=== PATIENT | female | born 1980 | race Caucasian/White ===

== ENCOUNTER 2020-07-12 11:14 | Outpatient (CLI) | payer OTHER, MEDICAID ==
--- NOTE | 2020-07-12 12:05 | XRAY Report ---
PROCEDURE: Knee 3 View RT INDICATIONS: RIGHT KNEE PAIN TECHNIQUE: 3 views of the right knee(s) were acquired. COMPARISON: None. FINDINGS: Bones: No fractures or dislocations. No suspicious bony lesions. Soft tissues: No joint effusion. No suspicious soft tissue calcifications. IMPRESSION: No trauma found, no effusion or loose body. Source of pain is seen. Reviewed by: Fareed Weinberg MD on 07/12/2020 12:04 PM [facility] Approved by: Fareed Weinberg MD on 07/12/2020 12:04 PM PST Station ID: [id number]
== END 2020-07-12 11:15 | disposition home or self-care (01) ==
LOC: DI.S 11:14
PROVIDERS: ATTEND Family Medicine
DX: M25.561 Pain in right knee (principal)

== ENCOUNTER 2020-08-31 12:50 | Outpatient (CLI) | payer OTHER, MEDICAID ==
--- NOTE | 2020-08-31 14:31 | Ultrasound Report ---
PROCEDURE: Ext Limited Non Vascular INDICATIONS: RT KNEE CYSTIC LATERAL MENISCUS TECHNIQUE: Real-time scanning was performed of the lateral right knee, with image documentation. COMPARISON: Right knee radiographs dated 07/12/2020 FINDINGS: A lobulated cystic structure is seen at the patient indicated an area of concern at the lateral aspec t of the right knee measuring 1.6 x 0.8 x 1.8 cm, which is nonspecific but most likely represents a p tavo meniscal cyst. No additional soft tissue lesion is identified. IMPRESSION: Lobulated cyst at the lateral aspect of the right knee measures 1.6 x 0.8 x 1.8 cm. Find ings are nonspecific, but likely represent a parameniscal cyst related to a possible underlying menis livia tear. Findings may be further evaluated with MRI if clinically indicated. Reviewed by: Didier Kearns MD on 08/31/2020 2:30 PM PST Approved by: Didier Kearns MD on 08/31/2020 2:30 PM PST Station ID: [id number]
== END 2020-08-31 12:51 | disposition home or self-care (01) ==
LOC: DI 12:50
PROVIDERS: ATTEND Physician Assistant
DX: M23.000 Cystic meniscus, unspecified lateral meniscus, right knee (principal); M25.861 Other specified joint disorders, right knee

== ENCOUNTER 2021-01-01 14:14 | Outpatient (CLI) | payer OTHER, MEDICAID ==
--- NOTE | 2021-01-01 15:22 | MRI Report ---
PROCEDURE: Knee RT W/O INDICATIONS: CYSTIC LATERAL MENISCUS OF R KNEE TECHNIQUE: Noncontrast sagittal PD fast spin echo and T2 fast spin echo with fat saturation, sagittal 3-D gradie nt sequence with fat saturation; coronal T1 spin echo and PD fast spin echo with fat saturation, and axial PD fast spin echo with fat saturation through the knee. COMPARISON: None. FINDINGS: Image quality: Excellent. Menisci: There is mild T2 signal elevation at the posterior meniscocapsular junction of the medial m eniscus. The medial and lateral menisci demonstrate otherwise normal morphology and internal signal. The meniscal root ligaments appear intact. Cruciate ligaments: The anterior and posterior cruciate ligaments appear intact. Medial structures: The medial collateral ligament appears intact. Visualized portions of the pes ans erinus tendons appear normal. No abnormal bursal fluid. Lateral structures: The lateral collateral ligament, long and short heads of the biceps femoris tend on appear intact. The popliteus tendon appears normally. Iliotibial band appears normal. Anterior structures: The quadriceps and patellar tendons appear intact. Patellar alignment is michael l. No femoral trochlear dysplasia or ventral trochlear prominence. Moderate edema in the superolater al aspect of the infrapatellar fat pad. Bones and cartilage: No bone marrow contusions or fractures. Moderate cartilage loss overlies the l ateral patellar facet inferiorly. Joint space: There is physiologic knee joint fluid. No Knight?s cyst. Normal appearing synovial pli are incidentally noted. IMPRESSION: 1. Meniscocapsular junction injury involving the posterior horn medial meniscus. 2. Findings consistent with lateral patellofemoral friction syndrome in the appropriate clinical sett ing. There is associated lateral patellofemoral compartment articular cartilage loss. Reviewed by: Patel Peter MD on 01/01/2021 3:21 PM PDT Approved by: Patel Peter MD on 01/01/2021 3:21 PM PDT Station ID: [id number]
== END 2021-01-01 14:15 | disposition home or self-care (01) ==
LOC: DI 14:14
PROVIDERS: ATTEND Physician Assistant
DX: M25.861 Other specified joint disorders, right knee (principal)

== ENCOUNTER 2023-07-14 07:00 | Outpatient (CLI) | payer OTHER, MEDICAID | END 2023-07-14 23:59 | disposition home or self-care (01) | LOC: LAB.S 07:00 | PROVIDERS: ATTEND Emergency Medicine | DX: N61.0 Mastitis without abscess (principal) | CPT/HCPCS: 87070; 87181; 87205 ==

== ENCOUNTER 2023-07-31 10:47 | Outpatient (CLI) | payer OTHER ==
--- NOTE | 2023-08-01 10:45 | Ultrasound Report ---
LIMITED ULTRASOUND OF RIGHT BREAST: 07/31/2023 CLINICAL: Right breast in the lower outer quadrant. Comparison is made to exam dated: 07/31/2023 mammogram - [facility]. Color flow ultrasound of the right breast lower outer quadrant was performed. Maya scale images of t he real-time examination were reviewed. There is an ill defined hypoechoic area in the right breast at 7 o'clock, 4 cm from the nipple with m ild surrounding parenchymal edema corresponding to area of clinical palpable concern and pain. The fi nding measures 12 x 5 x 12 mm. No vascularity is present within this area. No other sonographic abnor mality is visualized in the lower outer quadrant. IMPRESSION: PROBABLY BENIGN Right breast 12 mm ill defined hypoechoic area at 7 o'clock with mild surrounding parenchymal edema c orresponding to area of clinical palpable concern and pain. Patient reports area has decreased in siz e and pain since completing antibiotics for right nipple infection a few weeks ago. Finding likely re presents resolving phlegmon/abscess and is probably benign. Recommend follow-up ultrasound in 1 month to demonstrate resolution. Clinical follow-up is also recommended. Findings and recommendations were conveyed to the patient during today's evaluation. Patient was advi sed to return soon if clinical symptoms worsened in the interim. This exam was interpreted at Station ID: [id number]. Electronically Signed By: Natalie De Leon M.D., PH.D eb/:07/31/2023 13:51:55 Ultrasound BI-RADS: 3 Probably benign BI-RADS CATEGORY: (3) - 3 Ultrasound [id number] 1 month follow-up LATERALITY: (B)
--- NOTE | 2023-08-01 10:45 | Mammography Report ---
BILATERAL DIGITAL DIAGNOSTIC MAMMOGRAM 3D/2D WITH SPOT COMPRESSION: 07/31/2023 CLINICAL: Baseline exam. Palpable right breast lumps plus focal pain. No prior exams were available for comparison. Both breasts are heterogeneously dense, which may obscure small masses (category c / 51-75% glandular tissue). Two BB markers were placed in the right breast in the areas of clinical concern, and no mammographic abnormality is identified at either site. No significant masses, calcifications, or other findings are seen in either breast. IMPRESSION: INCOMPLETE: NEEDS ADDITIONAL IMAGING EVALUATION No mammographic evidence of malignancy. Recommend further evaluation with targeted breast ultrasound, which will immediately follow this exam. Based on the Tyrer Cuzick model (a risk assessment model) the patients lifetime risk is 10.1% and he r 10 year risk is 1.4%. According to the ACR, ACS, and NCCN guidelines, an annual breast MRI exam daiana ng with mammogram is recommended if the patients lifetime risk is 20% or greater. This exam was interpreted at Station ID: [id number]. NOTE: For mammograms, a report in lay terms will be sent to the patient. Approximately 15% of breast malignancies will not be visualized mammographically. In the management of a palpable breast mass, a negative mammogram must not discourage biopsy of a clinically suspicious lesion. Electronically Signed By: Natalie De Leon M.D., PH.D eb/:07/31/2023 11:30:28 ACR BI-RADS Category 0: Incomplete 3340F PARENCHYMAL PATTERN: (D) - The breast(s) demonstrate(s) heterogeneously dense fibroglandular parenchy ma. BI-RADS CATEGORY: (0) - 0 Ultrasound [id number] Immediate follow-up LATERALITY: (B)
== END 2023-07-31 10:48 | disposition home or self-care (01) ==
LOC: DI 10:47
PROVIDERS: ATTEND Registered Nurse
DX: N61.0 Mastitis without abscess (principal); R92.8 Other abnormal and inconclusive findings on diagnostic imaging of breast; R92.323 Mammographic fibroglandular density, bilateral breasts

== ENCOUNTER 2023-09-01 10:52 | Outpatient (CLI) | payer MEDICAID, OTHER ==
--- NOTE | 2023-09-02 10:46 | Ultrasound Report ---
LIMITED ULTRASOUND OF RIGHT BREAST: 09/01/2023 CLINICAL: Short term follow up of the right breast. US only. Comparison is made to exams dated: 07/31/2023 ultrasound and 07/31/2023 mammogram - [facility]. Color flow ultrasound of the right breast 7 o'clock region was performed on the areas of interest. G ray scale images of the real-time examination were reviewed. The irregular hypoechoic region in the right breast at 7 o'clock anterior depth is no longer seen. IMPRESSION: BENIGN There is no sonographic evidence of malignancy. Return to annual mammogram screening schedule is recommended. This exam was interpreted at Station ID: [id number]. Electronically Signed By: Cintia Andres M.D. lk/:09/01/2023 11:36:48 Ultrasound BI-RADS: 2 Benign BI-RADS CATEGORY: (2) - 2 RECOMMENDATION: (ANNUAL) - Recommend routine annual screening mammography. [id number] return to screening LATERALITY: (B)
== END 2023-09-01 10:53 | disposition home or self-care (01) ==
LOC: DI 10:52
PROVIDERS: ATTEND Registered Nurse
DX: R92.8 Other abnormal and inconclusive findings on diagnostic imaging of breast (principal)